=== PATIENT | male | born 1965 | race Caucasian/White ===

== ENCOUNTER 2024-06-01 09:08 | Day surgery (SDC) | payer OTHER ==
[~2024-06-01] VITALS: Ht 175.3 cm; Wt 119.5 kg
[2024-06-01] VITALS (9 sets, daily range): BP systolic 110–154; BP diastolic 79–89
[~2024-06-01 09:08] MED LIST: ATOR80 PO; LEVSOD100 PO; LEVSOD125 PO; LOSA50 PO; VITAMIN D310 MC4 PO; ZOCOR20 MG PO
[2024-06-01] MEDS ORDERED: GUSELKUMAB SC (09:26)
[2024-06-01] MEDS ORDERED: NS 1,000 ML IV ONE ×2 (10:03→10:06)
[2024-06-01] MEDS ORDERED: Heparin Sodium 1000 Units/ML 10ML MDV ONE ×2 (10:06→10:10)
[2024-06-01] MEDS ORDERED: Verapamil HCL 2.5 MG/ML 2ML Injection ONE (10:06)
[2024-06-01] MEDS ORDERED: NS 250 ML IV ONE (10:07)
[2024-06-01] MEDS ORDERED: Nitroglycerin 2 MG/20 ML BTL ONE (10:07)
[2024-06-01] MEDS ORDERED: Midazolam HCl 1MG / ML 2ML Vial ONE (10:35)
[2024-06-01] MEDS ORDERED: FentaNYL Citrate 50 MCG/ML 2 ML Injection ONE (10:35)
--- NOTE | 2024-06-01 11:35 | NUR ---
ASSUMED CARE OF PT POST PROCEDURE. PT ALERT AND ORIENTED, PLEASENT AND COOPERATIVE; DENIES PAIN POST PROCEDURE. MONITOR SR 60'S, B/P 132/88, SPO2 98% RA. R RADIAL SITE NO SWELLING/HEMATOMA, TR BAND IN PLACE; RUE POSITIVE PLEUTH POST TR BAND PLACEMENT. R AC (VENOUS) SITE NO SWELLING/HEMATOMA, TEGADERM DRSG INTACT. PT'S SO AT BEDISDE, ATTENTIVE.
--- NOTE | 2024-06-01 13:45 | NUR ---
PT'S TR BAND FULLY DEFLATED, NO SWELLING/HEMATOMA AT SITE.
--- NOTE | 2024-06-01 14:25 | NUR ---
PT DRESSED SELF WITHOUT ISSUE, SITE UNCHANGED. TR BAND REMOVED, CLOTH DOT AND WRIST IMMOBILIZER PLACED; IV REMOVED-CANNULA INTACT.
--- NOTE | 2024-06-01 14:41 | NUR ---
PT AND SO RECEIVED DISCHARGE INSTRUCTIONS, MED LIST AND AFTER CARE INSTRUCTIONS; VERBALIZED GOOD UNDERSTANDING. PT LEFT FACILITY VIA W/C, CONDITION STABLE.
== END 2024-06-01 16:46 | disposition home or self-care (01) ==
LOC: MHTC 09:08
DX: I35.0 Nonrheumatic aortic (valve) stenosis (principal); I10 Essential (primary) hypertension; E78.49 Other hyperlipidemia; Q23.81 Bicuspid aortic valve; I27.20 Pulmonary hypertension, unspecified; Z79.899 Other long term (current) drug therapy
CPT/HCPCS: 76937; 93456; 99152; C1769; C1887; C1894; J1644; J2250; J3010; J7030; J7050; Q9967